=== PATIENT | male | born 1980 | race Caucasian/White ===

== ENCOUNTER 2019-07-25 11:30 | Emergency (ER) | payer OTHER, SELFPAY ==
[2019-07-25 11:33] VITALS: BP 175/88; PULSE 85; RESP 20; TEMP 36.7; O2SAT 99
--- NOTE | 2019-07-25 12:08 | ED.GENADULT ---
HPI - General Adult General Chief complaint: Unspecified <Huey Bello PA-C - Last Filed: 07/25/19 12:12> Stated complaint: WANTS REHAB <Huey Bello PA-C - Last Filed: 07/25/19 12:12> Time Seen by Provider: 07/25/19 11:33 <Huey Bello PA-C - Last Filed: 07/25/19 12:12> Source: patient <MELQUIADES Wilson Last Filed: 07/25/19 12:12> Mode of arrival: ambulatory <MELQUIADES Wilson Last Filed: 07/25/19 12:12> Limitations: no limitations <Huey Bello PA-C - Last Filed: 07/25/19 12:12> History of Present Illness HPI narrative: Patient is a 39-year-old male who presents to emergency department for evaluation of dental pain which is chronic in nature with chronic dental caries patient would also like to be tested and treated for STDs. . Patient denies any current pain. Patient presents per EMS. Patient denies vomiting diarrhea or URI symptoms <Huey Bello PA-C - Last Filed: 07/25/19 12:12> Related Data Allergies/adverse reactions: Allergies Allergy/AdvReac Type Severity Reaction Status Date / Time No Known Allergies Allergy Verified 07/25/19 11:43 <Huey Bello PA-C - Last Filed: 07/25/19 12:12> Review of Systems Review of Systems: All systems reviewed & are unremarkable except as noted in HPI and below <Huey Bello PA-C - Last Filed: 07/25/19 12:12> PMFSH Social History Social History: Social History (Updated 07/25/19 @ 12:09 by Huey Bello PA-C) Smoking status: Current every day smoker Alcohol intake: never Substance use: current Substance use type: heroin and methamphetamine Gender identity (if verbalized by the patient): Male <MELQUIADES Wilson Last Filed: 07/25/19 12:12> Exam Narrative: Exam Narrative: GENERAL: Well-appearing, well-nourished, and in no acute distress. HEAD: Normocephalic, atraumatic. EYES: PERRLA and EOMI. ENT: Nares clear, no rhinorrhea or epistaxis. Mucous membranes moist. Oropharynx without tonsillar hypertrophy exudate or other lesions. Gross dental caries no space-occupying lesions uvula midline no trismus or drooling NECK: Supple. No adenopathy or masses. CHEST: Clear to auscultation. No respiratory distress. No wheezes rales or rhonchi HEART: Regular rate and rhythm. No murmur heard. Normal peripheral pulses. EXTREMITIES: Normal range of motion. No edema. SKIN: Warm, dry, no rash. NEURO: No focal deficits. Alert and oriented x3. Cranial nerves II through XII grossly intact. PSYCH: Normal mood and affect. <MELQUIADES Wilson Last Filed: 07/25/19 12:12> Course Course Emergency Course: Patient in the room in no distress agreeing to follow-up as directed or to return if symptoms worsen or concerns <MELQUIADES Wilson Last Filed: 07/25/19 12:12> Vital Signs Vital signs: Vital Signs Temperature 36.7 C 07/25/19 11:33 Pulse Rate 07/25/19 11:33 Respiratory Rate 07/25/19 11:33 Blood Pressure 175/88 H 07/25/19 11:33 Pulse Oximetry 99 07/25/19 11:33 Temperature 36.7 C 07/25/19 11:33 Pulse Rate 07/25/19 11:33 Respiratory Rate 07/25/19 11:33 Blood Pressure 175/88 H 07/25/19 11:33 Pulse Oximetry 99 07/25/19 11:33 <MELQUIADES Wilson Last Filed: 07/25/19 12:12> Vital Signs Temperature 36.7 C 07/25/19 11:33 Pulse Rate 07/25/19 11:33 Respiratory Rate 07/25/19 11:33 Blood Pressure 175/88 H 07/25/19 11:33 Pulse Oximetry 99 07/25/19 11:33 Temperature 36.7 C 07/25/19 11:33 Pulse Rate 07/25/19 11:33 Respiratory Rate 07/25/19 11:33 Blood Pressure 175/88 H 07/25/19 11:33 Pulse Oximetry 99 07/25/19 11:33 <Nely Sandoval MD - Last Filed: 07/25/19 12:44> Medical Decision Making MDM Narrative Medical decision making narrative: Paitents pain and complaint coupled with physical findings are consistant with dentalgia. There are
[2019-07-25] MEDS: metroNIDAZOLE 250 MG TABLET 2000 MG PO (12:22)
[2019-07-25] MEDS: cefTRIAXone 250 MG VIAL IM (12:23)
[2019-07-25] MEDS: AZITHROMYCIN 250 MG TABLET 1000 MG PO (12:23)
[2019-07-25 12:40] LABS: Add Urine Microscopic? NO; Appearance Urine Clear (Clear); Bilirubin Urine Negative (Negative); Blood Urine Negative (Negative); Color Urine Yellow (Yellow); Glucose Urine UA Negative (Negative); Ketones Urine Negative (Negative); Leukocyte Esterase Ur Negative LEU/UL (Negative); Nitrate Urine Negative (Negative); Protein Urine Negative (Negative); Specific Grav Ur 1.024 (1.001-1.035); Urobilinogen Urine Negative mg/dL (<2.0)
[2019-07-25 13:31] VITALS: BP 142/92; PULSE 70; RESP 20; O2SAT 100
== END 2019-07-25 13:32 | disposition home or self-care (01) ==
PROVIDERS: Emergency Medicine Emergency Medical Services; Emergency Provider Emergency Medicine
DX: K08.89 Other specified disorders of teeth and supporting structures (principal); F17.200 Nicotine dependence, unspecified, uncomplicated
CPT/HCPCS: 81003; 87491; 87591; 96372; 99283; A9270; J0696